=== PATIENT | female | born 1995 ===

== ENCOUNTER → 2018-01-10 | Day surgery (SDC) | payer OTHER ==
[~2018-01-10] MED LIST: COLACE100 MG PO; KEFLEX500 MG PO; PERCOCET 5-3251 EACH PO; TRILEPTAL150 MG PO; [UNRECOGNIZED DRUG - OTHER] PO
== END | disposition home or self-care (01) ==
LOC: ADM 01-02 12:00 → CIR.AMB 07:00
DX: L72.0 Epidermal cyst (principal); L92.0 Granuloma annulare

== ENCOUNTER 2020-11-06 11:11 | Emergency (ER) | payer OTHER ==
[~2020-11-06] VITALS: Ht 165.1 cm; Wt 86.2 kg
[2020-11-06] MEDS ORDERED: PRIMIDONE250 MG PO (11:24)
== END 2020-11-06 15:24 | disposition home or self-care (01) ==
LOC: ER 11:11
DX: S83.8X1A Sprain of other specified parts of right knee, initial encounter (principal); X50.0XXA Overexertion from strenuous movement or load, initial encounter; Y93.39 Activity, other involving climbing, rappelling and jumping off; Y92.89 Other specified places as the place of occurrence of the external cause; Y99.8 Other external cause status